=== PATIENT | male | born 1995 | race Caucasian/White ===

== ENCOUNTER 2022-02-22 11:16 | Observation (INO) ==
[2022-02-22] MEDS ORDERED: *HR* Heparin 10,000 UNIT/10 ML VIAL ONE (12:16)
[2022-02-22] MEDS ORDERED: Iopamidol - 370 200 ML INFUS..BTL ONE (12:16)
[2022-02-22] MEDS ORDERED: Heparin 1,000 UNITS/500 mL 500 ML ONE (12:16)
[2022-02-22] MEDS ORDERED: *HR* Midazolam HCl 2 MG/2 ML VIAL ONE (12:16)
[2022-02-22] MEDS ORDERED: 0.9 % Sodium Chloride 2,000 ML ONE (12:16)
[2022-02-22] MEDS ORDERED: *HR* FentaNYL (PF) 100 MCG/2 ML VIAL ONE (12:16)
[2022-02-22] MEDS ORDERED: Nitroglycerin 1,000 MCG/5 ML VIAL IV ONE (12:17)
[2022-02-22] MEDS ORDERED: Ondansetron 4 MG/2 ML VIAL IVP PRN (13:44)
[2022-02-22] MEDS ORDERED: Melatonin 3 MG TABLET PO PRN (13:44)
[2022-02-22] MEDS ORDERED: Perflutren Lipid Microsphere 1.3 ML in 0.9 % Sodium Chloride 8.7 ML IVP PRN (14:00)
[2022-02-22] MEDS: Ibuprofen 400 MG TABLET PO SCH ×2 (15:11→22:21)
[2022-02-22] MEDS: Colchicine 0.6 MG TABLET PO SCH ×2 (15:12→22:21)
[2022-02-22 16:35] LABS: Adenovirus Not Detected (Not Detect); Bordetella Pertussis Not Detected (Not Detect); Coronavirus 229E Not Detected (Not Detect); Coronavirus HKU1 Not Detected (Not Detect); Coronavirus NL63 Not Detected (Not Detect); Coronavirus OC43 Not Detected (Not Detect); Human Metapneumovirus Not Detected (Not Detect); Human Rhinovirus/Enterovirus Not Detected (Not Detect); Influenza A Subtype 2009 H1 Not Detected (Not Detect); Influenza B Not Detected (Not Detect); Parainfluenza Virus 1 Not Detected (Not Detect); Parainfluenza Virus 2 Not Detected (Not Detect); Parainfluenza Virus 3 Not Detected (Not Detect); Parainfluenza Virus 4 Not Detected (Not Detect); Respiratory Syncytial Virus Not Detected (Not Detect)
[2022-02-22 16:36] LABS: Chlamydophila pneumoniae Not Detected (Not Detect); Mycoplasma pneumoniae Not Detected (Not Detect)
[2022-02-22 16:37] LABS: SARS-CoV-2 DETECTED (Not Detect)
[2022-02-23 03:42] LABS: BUN/Creatinine Ratio 13 (6-26); Blood Urea Nitrogen 12 mg/dL (6-20); Calcium 9.1 mg/dL (8.6-10.3); Carbon Dioxide 26 mEq/L (23-29); Chloride 102 mEq/L (98-107); Glucose 168 mg/dL (70-105); Magnesium 2.1 mg/dL (1.6-2.6); Osmolality,Calculated 286 (280-300); Sodium 136 mEq/L (136-145); Troponin I 1.98 ng/mL (< 0.04); eGFR For African Americans > 60 (> 60); eGFR For Non-African Americans > 60 (> 60)
[2022-02-23] MEDS: Ibuprofen 400 MG TABLET PO SCH ×2 (09:47→16:13)
[2022-02-23] MEDS: Colchicine 0.6 MG TABLET PO SCH (09:47)
[2022-02-23 11:00] VITALS: PULSE 75
[2022-02-23 14:56] VITALS: BP 104/67; TEMP 97.8; O2SAT 97
== END 2022-02-23 17:23 | disposition home or self-care (01) ==
LOC: 3BNU
PROVIDERS: ADMIT Internal Medicine; ATTEND Internal Medicine